=== PATIENT | male | born 1950 | race Caucasian/White ===

== ENCOUNTER 2022-04-12 06:54 | Emergency (ER) | payer MEDICARE ==
--- NOTE | 2022-04-12 07:20 | ERPHSYRPT ---
- History of Present Illness Time Seen by Provider: 04/12/22 07:05 Source: patient, family Exam Limitations: no limitations Patient Subjective Stated Complaint: pt was at infusion center, receiving daptomycin and cefepime, was getting ready to receive infusions and Rn from infusion center state his HR was between 120-170 with a history of afib, nurse brought pt to ER. Triage Nursing Assessment: pt is alert and oriented very pleasant and talkative, pt states he does have a history of afib, states he has no pain in chest but does have chronic pain in back that he rates 10/10. pt on 2l of O2 continuously. Physician History: This is a 71-year-old white male who has a history of atrial fibrillation, hypertension, peripheral vascular disease, coronary artery disease. Patient was sent to us from the infusion clinic where the patient was receiving daptomycin and cefepime intravenous antibiotics for treatment of MRSA. Patient's vital signs were taken and he was found to have atrial fibrillation with RVR with a he art rate in between 120s to 170s. Patient was maintaining his blood pressure fine. Patient is on Eliquis. Patient does state that he feels palpitations but he has no shortness of breath and no chest pain. He has no abdominal pain. He has no nausea vomiting or diarrhea symptoms. Patient did not take his medication this morning. 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 Timing/Duration: today Activities at Onset: none Chest Pain Radiation: no radiation Severity of Pain-Max: none Severity of Pain-Current: none Modifying Factors: Improves With: nothing Nitro Today/Relief: no nitro taken today Aspirin Treatment Today: no aspirin today Associated Symptoms: other (Palpitations), No nausea, No vomiting, No abdominal pain, No shortness of breath, No chest pain Allergies/Adverse Reactions: No Known Drug Allergies Allergy (Unverified 04/08/22 11:15) Home Medications: Albuterol 2.5 mg/3 ml Neb [Proventil 2.5 mg/3 ml Neb] 2.5 mg IH BID 04/09/22 [History] Albuterol Sulfate [Albuterol Sulfate Hfa] 90 mcg IH Q4-6HPRN PRN 04/09/22 [History] Apixaban [Eliquis 5 mg Tablet] 5 mg PO BID 04/09/22 [History] Ascorbic Acid 500 mg [Vitamin C 500 MG] 500 mg PO BID 04/09/22 [History] Aspirin EC 81 mg [Ecotrin 81 mg] 81 mg PO DAILY 04/09/22 [History] Cetirizine HCl [Zyrtec] 10 mg PO DAILY 04/09/22 [History] Ferrous Sulfate 325 mg [Feosol 325 mg] 325 mg PO DAILY 04/09/22 [History] Fluticasone/Umeclidin/Vilanter [Trelegy Ellipta 100-62.5-25] 1 each IH DAILY 04/09/22 [History] Furosemide 40 mg [Lasix 40 MG] 40 mg PO DAILY 04/09/22 [History] Hydrocodone/Acetaminophen [Hydrocodone-Acetamin 10-325 mg] 1 tablet PO Q6H PRN PRN 04/09/22 [History] Ipratropium/Albuterol Sulfate [Iprat-Albut 0.5-3(2.5) mg/3 ml] 1 dose IH QID 04/09/22 [History] Melatonin 10 mg PO HS 04/09/22 [History] Metoprolol Tartrate 50 mg [Lopressor 50 MG] 50 mg PO BID 04/09/22 [History] Multivitamin/Iron/Folic Acid [Centrum Adults Tablet] 1 each PO DAILY 04/09/22 [History] PANTOPRAZOLE 40 mg Tablet [Protonix 40MG Tablet] 40 mg PO BID 04/09/22 [History] Potassium Chloride [Klor-Con M20] 20 meq PO DAILY 04/09/22 [History] Prednisone 10 mg [Deltasone 10 mg] 10 mg PO UD 04/09/22 [History] Sacubitril/Valsartan [Entresto 24 mg-26 mg Tablet] 1 each PO BID 04/09/22 [History] Sucralfate 1 gm [Carafate 1 GM] 1 g PO ACHS 04/09/22 [History] Hx Influenza Vaccination/Date Given: No Hx Pneumococcal Vaccination/Date Given: No Travel Risk - International Travel Have you traveled outside of the country in past 3 weeks: No - Coronavirus Screening Are you exhibiting any of the following symptoms?: No Close contact with a COVID-19 positive Pt in past 14-21 Days: No - Vaccine Status Have you recieved a Covid-19 vaccination: Yes Deburring Technician: Moderna - Vaccination Dates Date of 2cond Vaccination (if applicable): unknown - Review of Systems Constitutional: No Symptoms Eyes: No Symptoms Ears, Nose, & Throat: No Symptoms Respiratory: No Symptoms Cardiac: Palpitations Abdominal/Gastrointestinal: No Symptoms Genitourinary Symptoms: No Symptoms Musculoskeletal: No Symptoms Skin: No Symptoms Neurological: No Symptoms Psychological: No Symptoms Endocrine: No Symptoms Hematologic/Lymphatic: No Symptoms Immunological/Allergic: No Symptoms All Other Systems: Reviewed and Negative - Past Medical History Pertinent Past Medical History: Yes Neurological History: No Pertinent History ENT History: No Pertinent History Cardiac History: Arrhythmia, Hypertension, Myocardial Infarction ([place]), Peripheral Vascular Disease Respiratory History: COPD, Pneumonia Endocrine Medical History: No Pertinent History Musculoskeletal History: Other GI Medical History: GERD, GI Bleed History: No Pertinent History Psycho-Social History: No Pertinent History Male Reproductive Disorders: No Pertinent History Other Medical History: back pain- hx kyphoplasty, Afib, MRSA in left foot - Past Surgical History Past Surgical History: Yes Neuro Surgical History: No Pertinent History Cardiac: No Pertinent History Respiratory: No Pertinent History Gastrointestinal: Hemorrhoidectomy Genitourinary: No Pertinent History Musculoskeletal: No Pertinent History Male Surgical History: No Pertinent History Other Surgical History: kyphoplasty x2. abdominal and lower extremity stent - Social History Smoking Status: Former smoker How long have you smoked: 50 years Drug Use: none - Nursing Vital Signs Nursing Vital Signs: Initial Vital Signs Temperature 97.6 F 04/12/22 06:55 Pulse Rate 132 H 04/12/22 06:55 Respiratory Rate 20 04/12/22 06:55 Blood Pressure 119/81 04/12/22 06:55 O2 Sat by Pulse Oximetry 100 04/12/22 06:55 Pain Scale Pain Intensity 6 - Physical Exam General Appearance: no apparent distress, alert, anxiety Eye Exam: PERRL/EOMI, eyes nml inspection Ears, Nose, Throat Exam: normal ENT inspection, moist mucous membranes Neck Exam: normal inspection, non-tender, supple, full range of motion Respiratory Exam: normal breath sounds, lungs clear, airway intact, No chest tenderness, No respiratory distress Cardiovascular Exam: normal peripheral pulses, irregular Gastrointestinal/Abdomen Exam: soft, normal bowel sounds, No tenderness Rectal Exam: not done Back Exam: normal inspection, normal range of motion, No CVA tenderness, No vertebral tenderness Extremity Exam: normal inspection, normal range of motion, pelvis stable Neurologic Exam: alert, oriented x 3, cooperative, supervisor byproducts II-XII nml as tested, normal mood/affect, nml cerebellar function, nml station & gait, sensation nml Skin Exam: normal color, warm, dry Lymphatic Exam: No adenopathy SpO2 Interpretation: normal SpO2: 100 O2 Delivery: Room Air - Course Nursing assessment & vital signs reviewed: Yes EKG Interpreted by Me: RATE (164), A-fib, LAFB, Other (No acute ischemic changes on today's EKG. No comparison twelve-lead EKG available.) Ordered Tests: Active Orders 24 hr Category Date Time Status EKG-ER Only STAT Care 04/12/22 07:22 Active IV Insertion STAT Care 04/12/22 07:22 Active CHEST WITH CONTRAST [CT] Stat Exams 04/12/22 09:07 Completed CBC W DIFF Stat Lab 04/12/22 07:30 Completed CMP Stat Lab 04/12/22 07:30 Completed CULTURE,URINE Stat Lab 04/12/22 10:11 Received D-DIMER QUANTITATIVE Stat Lab 04/12/22 07:30 Completed Lactic Acid Stat Lab 04/12/22 08:44 Completed MAGNESIUM Stat Lab 04/12/22 07:30 Completed NT PRO BNP Stat Lab 04/12/22 07:30 Completed PROTIME WITH INR Stat Lab 04/12/22 07:30 Completed TROPONIN Q3H Lab 04/12/22 07:30 Completed TROPONIN Q3H Lab 04/12/22 10:20 Completed TROPONIN Q3H Lab 04/12/22 16:30 Ordered TROPONIN Q3H Lab 04/12/22 19:30 Ordered UA W/RFX CULTURE Stat Lab 04/12/22 10:11 Completed Medication Summary Generic Name Dose Route Start Last Admin Trade Name Freq PRN Reason Stop Dose Admin Diltiazem HCl 100 mls @ 5 mls/hr 04/12/22 07:39 04/12/22 11:30 Cardizem Drip 100 Mg/100 Ml D5w IV 05/12/22 07:38 12 mg/hr .Q20H PRN 12 mls/hr HEART RATE/ A-FIB Titration Protocol 5 MG/HR Discontinued Medications Generic Name Dose Route Start Last Admin Trade Name Nba PRN Reason Stop Dose Admin Diltiazem HCl 20 mg 04/12/22 07:22 04/12/22 07:29 Diltiazem Hcl Iv 5 Mg/Ml Vial IV 04/12/22 07:23 20 mg STAT ONE Administration Diltiazem HCl Confirm 04/12/22 07:25 Diltiazem Hcl Iv 5 Mg/Ml Vial Administered 04/12/22 07:26 Dose 50 mg IV .STK-MED ONE Furosemide 40 mg 04/12/22 08:45 04/12/22 11:10 Furosemide 40 Mg/4 Ml Vial IV 04/12/22 08:46 40 mg STAT ONE Administration Furosemide Confirm 04/12/22 11:10 Furosemide 40 Mg/4 Ml Vial Administered 04/12/22 11:11 Dose 40 mg .ROUTE .STK-MED ONE Sodium Chloride 500 mls @ 500 mls/hr 04/12/22 08:43 04/12/22 10:49 Sodium Chloride 0.9% 500 Ml IV 04/12/22 09:42 Infused .Q1H ONE Infusion Sodium Chloride Confirm 04/12/22 08:53 Sodium Chloride 0.9% 500 Ml Administered 04/12/22 08:54 Dose 500 mls @ ud IV .STK-MED ONE Metoprolol Tartrate 5 mg 04/12/22 07:22 04/12/22 07:27 Metoprolol Tartrate 5 Mg/5 Ml Vial IV 04/12/22 07:23 5 mg STAT ONE Administration Metoprolol Tartrate Confirm 04/12/22 07:25 Metoprolol Tartrate 5 Mg/5 Ml Vial Administered 04/12/22 07:26 Dose 5 mg IV .STK-MED ONE Metoprolol Tartrate 5 mg 04/12/22 08:44 04/12/22 08:54 Metoprolol Tartrate 5 Mg/5 Ml Vial IV 04/12/22 08:45 5 mg STAT ONE Administration Metoprolol Tartrate Confirm 04/12/22 08:53 Metoprolol Tartrate 5 Mg/5 Ml Vial Administered 04/12/22 08:54 Dose 5 mg IV .STK-MED ONE Morphine Sulfate 2 mg 04/12/22 07:26 04/12/22 08:26 Morphine Sulfate 2 Mg/Ml Inj IV 04/12/22 07:27 2 mg STAT ONE Administration Morphine Sulfate Confirm 04/12/22 08:25 Morphine Sulfate 2 Mg/Ml Inj Administered 04/12/22 08:26 Dose 2 mg .ROUTE .STK-MED ONE Ondansetron HCl 4 mg 04/12/22 07:26 04/12/22 08:25 Ondansetron Hcl 4 Mg/2 Ml Vial IV 04/12/22 07:27 4 mg STAT ONE Administration Ondansetron HCl Confirm 04/12/22 08:24 Ondansetron Hcl 4 Mg/2 Ml Vial Administered 04/12/22 08:25 Dose 4 mg .ROUTE .STK-MED ONE Lab/Rad Data: Laboratory Result Diagrams 04/12/22 07:30 04/12/22 07:30 Laboratory Results 04/12/22 04/12/22 04/12/22 Range/Units 10:20 10:11 09:15 WBC (4.0-10.5) x10^3/uL RBC (4.1-5.6) x10^6/uL Hgb (12.5-18.0) g/dL Hct (42-50) % MCV (78-100) fL MCH (26-32) pg MCHC (32-36) g/dL RDW (11.5-14.0) % Plt Count (150-450) x10^3/uL MPV (7.5-11.0) fL Gran % (36.0-66.0) % Immature Gran % (Auto) (0.00-0.4) % Nucleat RBC Rel Count (0.00-0.1) % Eos # (Auto) (0-0.5) x10^3/uL Immature Gran # (Auto) (0.00-0.03) x10^3u/L Absolute Lymphs (auto) (1.0-4.6) x10^3/uL Absolute Monos (auto) (0.0-1.3) x10^3/uL Absolute Nucleated RBC (0.00-0.01) x10^3u/L Lymphocytes % (24.0-44.0) % Monocytes % (0.0-12.0) % Eosinophils % (0.00-5.0) % Basophils % (0.0-0.4) % Absolute Granulocytes (1.4-6.9) x10^3/uL Basophils # (0-0.4) x10^3/uL PT (9.4-12.5) SECONDS INR (0.8-3.0) D-Dimer (0.0-0.50) mg/L Sodium (137-145) mmol/L Potassium (3.5-5.1) mmol/L Chloride (98-107) mmol/L Carbon Dioxide (22-30) mmol/L Anion Gap (5-15) MEQ/L BUN (9-20) mg/dL Creatinine (0.66-1.25) mg/dL Estimated GFR ML/MIN Glucose (74-106) mg/dL Lactic Acid (0.4-2.0) Calcium (8.4-10.2) mg/dL Magnesium (1.6-2.3) mg/dL Total Bilirubin (0.2-1.3) mg/dL AST (17-59) U/L ALT (0-50) U/L Alkaline Phosphatase (38-126) U/L Troponin I 0.087 H* (0.000-0.034) ng/mL NT-Pro-B Natriuret Pep (0-900) pg/mL Serum Total Protein (6.3-8.2) g/dL Albumin (3.5-5.0) g/dL Urinalys Dipstick Clnc MAIN LAB Urine Color YELLOW (YELLOW) Urine Appearance SLIGHTLY CLOUDY (CLEAR) Urine pH 5.5 (5-6) Ur Specific [place] 1.020 (1.005-1.025) POC Urine Protein Conf 100 (Negative) Urine Ketones TRACE (NEGATIVE) Urine Nitrite NEGATIVE (NEGATIVE) Urine Bilirubin NEGATIVE (NEGATIVE) Urine Urobilinogen 0.2 (0-1) mg/dL Urine Leukocytes NEGATIVE (NEGATIVE) Urine WBC (Auto) 3-5 (0-5) /HPF Urine RBC (Auto) NONE (0-2) /HPF U Epithel Cells (Auto) NONE (FEW) /HPF Urine Bacteria (Auto) RARE (NEGATIVE) /HPF Urine RBC MODERATE (0-5) Alfredo/ul Granular Casts (Auto) 2-5 (NEGATIVE) /LPF Urine Mucus (Auto) SLIGHT (NEGATIVE) /HPF Ur Culture Indicated? YES Urine Glucose NEGATIVE (NEGATIVE) mg/dL Influenza Type A Ag NEGATIVE (NEGATIVE) Influenza Type B Ag NEGATIVE (NEGATIVE) RSV (PCR) NEGATIVE (Negative) SARS-CoV-2 (PCR) NEGATIVE (NEGATIVE) Slides for Path Review 04/12/22 04/12/22 04/12/22 Range/Units 08:44 07:30 07:30 WBC (4.0-10.5) x10^3/uL RBC (4.1-5.6) x10^6/uL Hgb (12.5-18.0) g/dL Hct (42-50) % MCV (78-100) fL MCH (26-32) pg MCHC (32-36) g/dL RDW (11.5-14.0) % Plt Count (150-450) x10^3/uL MPV (7.5-11.0) fL Gran % (36.0-66.0) % Immature Gran % (Auto) (0.00-0.4) % Nucleat RBC Rel Count (0.00-0.1) % Eos # (Auto) (0-0.5) x10^3/uL Immature Gran # (Auto) (0.00-0.03) x10^3u/L Absolute Lymphs (auto) (1.0-4.6) x10^3/uL Absolute Monos (auto) (0.0-1.3) x10^3/uL Absolute Nucleated RBC (0.00-0.01) x10^3u/L Lymphocytes % (24.0-44.0) % Monocytes % (0.0-12.0) % Eosinophils % (0.00-5.0) % Basophils % (0.0-0.4) % Absolute Granulocytes (1.4-6.9) x10^3/uL Basophils # (0-0.4) x10^3/uL PT 11.7 (9.4-12.5) SECONDS INR 1.11 (0.8-3.0) D-Dimer 1.36 H* (0.0-0.50) mg/L Sodium (137-145) mmol/L Potassium (3.5-5.1) mmol/L Chloride (98-107) mmol/L Carbon Dioxide (22-30) mmol/L Anion Gap (5-15) MEQ/L BUN (9-20) mg/dL Creatinine (0.66-1.25) mg/dL Estimated GFR ML/MIN Glucose (74-106) mg/dL Lactic Acid 1.1 (0.4-2.0) Calcium (8.4-10.2) mg/dL Magnesium (1.6-2.3) mg/dL Total Bilirubin (0.2-1.3) mg/dL AST (17-59) U/L ALT (0-50) U/L Alkaline Phosphatase (38-126) U/L Troponin I 0.102 H* (0.000-0.034) ng/mL NT-Pro-B Natriuret Pep (0-900) pg/mL Serum Total Protein (6.3-8.2) g/dL Albumin (3.5-5.0) g/dL Urinalys Dipstick Clnc Urine Color (YELLOW) Urine Appearance (CLEAR) Urine pH (5-6) Ur Specific [place] (1.005-1.025) POC Urine Protein Conf (Negative) Urine Ketones (NEGATIVE) Urine Nitrite (NEGATIVE) Urine Bilirubin (NEGATIVE) Urine Urobilinogen (0-1) mg/dL Urine Leukocytes (NEGATIVE) Urine WBC (Auto) (0-5) /HPF Urine RBC (Auto) (0-2) /HPF U Epithel Cells (Auto) (FEW) /HPF Urine Bacteria (Auto) (NEGATIVE) /HPF Urine RBC (0-5) Alfredo/ul Granular Casts (Auto) (NEGATIVE) /LPF Urine Mucus (Auto) (NEGATIVE) /HPF Ur Culture Indicated? Urine Glucose (NEGATIVE) mg/dL Influenza Type A Ag (NEGATIVE) Influenza Type B Ag (NEGATIVE) RSV (PCR) (Negative) SARS-CoV-2 (PCR) (NEGATIVE) Slides for Path Review 04/12/22 04/12/22 Range/Units 07:30 07:30 WBC 19.2 H (4.0-10.5) x10^3/uL RBC 3.16 L (4.1-5.6) x10^6/uL Hgb 9.9 L (12.5-18.0) g/dL Hct 32.1 L (42-50) % MCV 101.6 H (78-100) fL MCH 31.3 (26-32) pg MCHC 30.8 L (32-36) g/dL RDW 17.2 H (11.5-14.0) % Plt Count 305 (150-450) x10^3/uL MPV 11.0 (7.5-11.0) fL Gran % 87.2 H (36.0-66.0) % Immature Gran % (Auto) 1.0 H (0.00-0.4) % Nucleat RBC Rel Count 0.2 H (0.00-0.1) % Eos # (Auto) 0 (0-0.5) x10^3/uL Immature Gran # (Auto) 0.19 H (0.00-0.03) x10^3u/L Absolute Lymphs (auto) 0.70 L (1.0-4.6) x10^3/uL Absolute Monos (auto) 1.55 H (0.0-1.3) x10^3/uL Absolute Nucleated RBC 0.03 H (0.00-0.01) x10^3u/L Lymphocytes % 3.6 L (24.0-44.0) % Monocytes % 8.1 (0.0-12.0) % Eosinophils % 0.0 (0.00-5.0) % Basophils % 0.1 (0.0-0.4) % Absolute Granulocytes 16.78 H (1.4-6.9) x10^3/uL Basophils # 0.02 (0-0.4) x10^3/uL PT (9.4-12.5) SECONDS INR (0.8-3.0) D-Dimer (0.0-0.50) mg/L Sodium 141 (137-145) mmol/L Potassium 4.3 (3.5-5.1) mmol/L Chloride 109 H (98-107) mmol/L Carbon Dioxide 22 (22-30) mmol/L Anion Gap 14.2 (5-15) MEQ/L BUN 39 H (9-20) mg/dL Creatinine 1.34 H (0.66-1.25) mg/dL Estimated GFR 55.9 ML/MIN Glucose 130 H (74-106) mg/dL Lactic Acid (0.4-2.0) Calcium 8.6 (8.4-10.2) mg/dL Magnesium 2.1 (1.6-2.3) mg/dL Total Bilirubin 0.50 (0.2-1.3) mg/dL AST 41 (17-59) U/L ALT 66 H (0-50) U/L Alkaline Phosphatase 105 (38-126) U/L Troponin I (0.000-0.034) ng/mL NT-Pro-B Natriuret Pep 70211 H (0-900) pg/mL Serum Total Protein 6.6 (6.3-8.2) g/dL Albumin 3.5 (3.5-5.0) g/dL Urinalys Dipstick Clnc Urine Color (YELLOW) Urine Appearance (CLEAR) Urine pH (5-6) Ur Specific [place] (1.005-1.025) POC Urine Protein Conf (Negative) Urine Ketones (NEGATIVE) Urine Nitrite (NEGATIVE) Urine Bilirubin (NEGATIVE) Urine Urobilinogen (0-1) mg/dL Urine Leukocytes (NEGATIVE) Urine WBC (Auto) (0-5) /HPF Urine RBC (Auto) (0-2) /HPF U Epithel Cells (Auto) (FEW) /HPF Urine Bacteria (Auto) (NEGATIVE) /HPF Urine RBC (0-5) Alfredo/ul Granular Casts (Auto) (NEGATIVE) /LPF Urine Mucus (Auto) (NEGATIVE) /HPF Ur Culture Indicated? Urine Glucose (NEGATIVE) mg/dL Influenza Type A Ag (NEGATIVE) Influenza Type B Ag (NEGATIVE) RSV (PCR) (Negative) SARS-CoV-2 (PCR) (NEGATIVE) Slides for Path Review YES - Progress Progress: improved, re-examined Air Movement: good Progress Note: 04/12/22 10:38 CTA of the chest results stated pulmonary embolus evaluation was limited due to poor contrast opacification. There is no obvious central pulmonary embolus. There is diffuse pulmonary emphysema scattered fibrosis/scarring with tiny left pleural effusion. There is compression fracture of uncertain chronicity on T5, T8 and T12. 04/12/22 11:40 Medical decision making: This patient presents to our facility with atrial fibrillation with RVR. In addition he has leukocytosis, osteomyelitis/MRSA which she is receiving intravenous antibiotics for. He also has symptomatic CHF exacerbation. He has an elevated troponin as well. Patient is on a Cardizem drip. I spoke with Dr. 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 I then spoke to the emergency room physician at [facility] in [facility], Dr. Curtis. I reviewed the patient history, physical findings, laboratory and x- ray results as well as treatment and treatment response. He accepts the patient in transfer 04/12/22 11:42 Blood Culture(s) Obtained: No Antibiotics given: Yes Discussed with DrBennett: Juan, Other (Kirsten) Counseled pt/family regarding: lab results, diagnosis, rad results - Departure Clinical Impression: Atrial fibrillation with RVR, Leukocytosis, CHF exacerbation, Elevated troponin Condition: Fair Critical Care Time: Yes Critical Care Time(excluding separately billable procedures): Critical 30-74 mins (45 minutes) Referrals: MERY AGUILAR [Primary Care Provider] - Follow up/PCP as directed Instructions: Heart Failure
[2022-04-12] MEDS ORDERED: Cardizem IV 50 MG/10 ML IV ONE ×2 (07:22→07:25)
[2022-04-12] MEDS ORDERED: LOPRESSOR INJECTION IV ONE ×6 (07:22→12:03)
[2022-04-12] MEDS ORDERED: Zofran 4 MG/2 ML VIAL IV ONE (07:26)
[2022-04-12] MEDS ORDERED: MORPHINE SULFATE 2 MG INJ IV ONE ×2 (07:26→15:15)
[2022-04-12 07:38] LABS: Absolute Neutrophil Ct (ANC) 16.78 x10^3/uL (1.4-6.9); Basophil (Absolute #) 0.02 x10^3/uL (0-0.4); Eosinophil (Absolute #) 0 x10^3/uL (0-0.5); Hematocrit 32.1 % (42-50); Hemoglobin 9.9 g/dL (12.5-18.0); Lymphocytes % 3.6 % (24.0-44.0); Mean Cell Volume 101.6 fL (78-100); Mean Corpuscular Hemoglobin 31.3 pg (26-32); Mean Corpuscular Hgb Concent. 30.8 g/dL (32-36); Monocyte (Absolute #) 1.55 x10^3/uL (0.0-1.3); Monocytes % 8.1 % (0.0-12.0); Neutrophil % 87.2 % (36.0-66.0); Platelet Count 305 x10^3/uL (150-450); Red Blood Count 3.16 x10^6/uL (4.1-5.6); Red Cell Distribution Width 17.2 % (11.5-14.0); White Blood Count 19.2 x10^3/uL (4.0-10.5)
[2022-04-12] MEDS ORDERED: CARDIZEM DRIP 100 MG/100 ML D5W 100 ML IV ONE ×2 (07:50→15:18)
[2022-04-12] MEDS: CARDIZEM DRIP 100 MG/100 ML D5W 100 ML IV PRN ×2 (07:52→15:21)
[2022-04-12 08:03] LABS: ALBUMIN 3.5 g/dL (3.5-5.0); ANION GAP 14.2 MEQ/L (5-15); BILIRUBIN,TOTAL 0.5 mg/dL (0.2-1.3); Calcium 8.6 mg/dL (8.4-10.2); Creatinine 1 1.34 mg/dL (0.66-1.25); EST GLOMERULAR FILTRATION RATE 55.9 ML/MIN; MAGNESIUM 2.1 mg/dL (1.6-2.3); Potassium 4.3 mmol/L (3.5-5.1); Total Protein 6.6 g/dL (6.3-8.2)
[2022-04-12 08:09] LABS: INR 1.11 (0.8-3.0); PROTIME 11.7 SECONDS (9.4-12.5)
[2022-04-12 08:14] LABS: Slide Review 1 YES
[2022-04-12] MEDS ORDERED: Zofran 4 MG/2 ML VIAL ONE (08:24)
[2022-04-12] MEDS ORDERED: MORPHINE SULFATE 2 MG INJ ONE ×2 (08:25→15:15)
[2022-04-12] MEDS ORDERED: Sodium Chloride 0.9% 500 ML 500 ML IV ONE ×4 (08:43→12:57)
[2022-04-12] MEDS ORDERED: Lasix 40 MG/4 ML IV ONE (08:45)
[2022-04-12 09:05] LABS: D-DIMER QUANTITATIVE 1.36 mg/L (0.0-0.50)
--- NOTE | 2022-04-12 10:13 | XRAY ---
Indication: Chest pain. Elevated d-dimer. Multiple contiguous axial images obtained through the chest using 100 cc Isovue 370 contrast and PE protocol. Comparison: None Poor opacification of the pulmonary arteries limiting evaluation for pulmonary embolus. No obvious pulmonary embolus. Heart not enlarged with left arm PICC line. Aorta mildly arteriosclerotic without aneurysm/dissection. No pathologic mediastinal/hilar lymphadenopathy. Lungs demonstrates moderate diffuse pulmonary emphysema with minimal scattered bilateral fibrosis/scarring. Minimal bibasilar dependent atelectasis and tiny left effusion. No suspicious pulmonary mass, infiltrate, or pneumothorax. Bony thorax intact with osteopenia and L1 vertebroplasty. Minimal T5/T12 compression deformities with less than 20% height loss and T8 compression deformity with near complete collapse of uncertain chronicity. Limited upper abdomen including adrenal glands are unremarkable. Impression: 1. Pulmonary embolus evaluation limited due to poor contrast opacification. No obvious central pulmonary embolus. 2. Diffuse pulmonary emphysema, scattered fibrosis/scarring, and tiny left effusion. 3. T5/T12/T8 compression fractures as detailed of uncertain chronicity. Osteopenia and L1 vertebroplasty.
[2022-04-12 10:18] LABS: Appearance SLIGHTLY CLOUDY (CLEAR); Bilirubin NEGATIVE (NEGATIVE); Dipstick done @ ? MAIN LAB; Glucose NEGATIVE (NEGATIVE); Ketones TRACE (NEGATIVE); Nitrite NEGATIVE (NEGATIVE); Ph 5.5 (5-6); Protein,Urine Dip 100 (Negative); RBC MODERATE Ery/ul (0-5); Urine Cultured Indicated? YES; Urobilinogen 0.2 mg/dL (0-1)
[2022-04-12 10:24] LABS: Bacteria RARE /HPF (NEGATIVE); Mucus SLIGHT /HPF (NEGATIVE)
[2022-04-12 10:24] LABS: INFLUENZA A NEGATIVE (NEGATIVE); INFLUENZA B NEGATIVE (NEGATIVE); RESPIRATORY SYNCTIAL VIRUS NEGATIVE (Negative); SARS-CoV-2 Xpert Express NEGATIVE (NEGATIVE)
[2022-04-12] MEDS ORDERED: Lasix 40 MG/4 ML ONE (11:10)
[2022-04-12 11:43] VITALS: O2SAT 100
[2022-04-12 14:28] VITALS: BP 103/66; PULSE 120
[2022-04-12] MEDS ORDERED: Sodium Chloride 0.9% 1000 ML 1,000 ML IV SCH (15:30)
== END 2022-04-12 15:45 | disposition short-term general hospital (02) ==
LOC: ED 06:54
DX: I48.20 Chronic atrial fibrillation, unspecified (principal); Z79.01 Long term (current) use of anticoagulants; D72.829 Elevated white blood cell count, unspecified; I11.0 Hypertensive heart disease with heart failure; I50.9 Heart failure, unspecified; R77.8 Other specified abnormalities of plasma proteins; Z79.891 Long term (current) use of opiate analgesic; Z79.52 Long term (current) use of systemic steroids; J44.9 Chronic obstructive pulmonary disease, unspecified; Z20.828 Contact with and (suspected) exposure to other viral communicable diseases
CPT/HCPCS: 0241U; 36000; 36415; 71260; 80053; 81015; 83605; 83735; 83880; 84484; 85025; 85379; 85610; 87086; 93005; 96365; 96366; 96374; 96375; 96376; 99285; 99291; J1940; J2270; J2405